=== PATIENT | male | born 1980 | race Caucasian/White ===

== ENCOUNTER 2016-12-01 12:17 | Day surgery (SDC) | payer BC ==
[2016-11-30 15:04] VITALS: BMI 26.9
[2016-12-01] MEDS ORDERED: PROPOFOL 20 ML ONE (12:27)
[2016-12-01] MEDS ORDERED: LIDOCAINE 1%-EPI 1:100,000 30 ML MDV IJ ONE (12:28)
[2016-12-01] MEDS ORDERED: BUPIVACAINE HCL/PF 0.5% (5MG/ML) 10 ML VIAL ONE (12:28)
[2016-12-01] MEDS ORDERED: ROCURONIUM BROMIDE 50 MG/5 ML VIAL ONE (12:28)
[2016-12-01] MEDS ORDERED: MIDAZOLAM HCL 2 MG/2 ML SINGLE DOSE VIAL ONE (12:31)
[2016-12-01] MEDS ORDERED: LIDOCAINE 1%/EPI 1:100000 (20 ML MULTI DOSE VIAL) INF ONE (13:34)
[2016-12-01] MEDS ORDERED: ceFAZolin SODIUM 1 GM VIAL ONE (13:35)
[2016-12-01] MEDS ORDERED: LIDOCAINE HCL 2% 100 MG/5 ML DISP.SYRIN ONE (13:53)
[2016-12-01] MEDS ORDERED: ONDANSETRON 4 MG/2 ML VIAL ONE ×2 (13:54→14:23)
[2016-12-01] MEDS ORDERED: DEXAMETHASONE SOD PHOSPHATE 4 MG/1 ML VIAL ONE ×2 (13:54→14:23)
[2016-12-01] MEDS ORDERED: NEOSTIGMINE METHYLSULFATE 0.5 MG/ML - 10 ML MDV ONE (14:15)
[2016-12-01] MEDS ORDERED: GLYCOPYRROLATE 0.2 MG/1 ML VIAL ONE (14:16)
[2016-12-01] MEDS ORDERED: KETOROLAC TROMETHAMINE 30 MG/1 ML VIAL ONE (14:23)
[2016-12-01] MEDS ORDERED: BUPIVACAINE HCL/PF 0.5% (5MG/ML) 10 ML VIAL IJ ONE ×2 (14:40)
[2016-12-01] MEDS ORDERED: ACETAMINOPHEN 500 MG TABLET (FP) PO PRN (14:44)
[2016-12-01] MEDS ORDERED: ONDANSETRON 4 MG/2 ML VIAL IVPUSH PRN (14:44)
[2016-12-01] MEDS ORDERED: oxyCODONE HCL 5 MG TABLET PO PRN (14:44)
[2016-12-01] MEDS ORDERED: LACTATED RINGERS SOLUTION 1,000 ML IV SCH (14:45)
--- NOTE | 2016-12-01 18:13 | OP ---
DATE OF OPERATION: 12/01/2016 PREOPERATIVE DIAGNOSIS: Right clavicle shaft fracture. POSTOPERATIVE DIAGNOSIS: Right clavicle shaft fracture. OPERATIVE PROCEDURE: Open reduction and internal fixation of right clavicle fracture. SURGEON: Rhina Harris MD FACING END TRIMMER: DENZEL Lawson ANESTHESIA: General. COMPLICATIONS: None. ESTIMATED BLOOD LOSS: Minimal. INDICATIONS FOR PROCEDURE: The patient is a 36-year-old male with above findings, indicated for operative treatment. Risks, benefits, alternatives were discussed with patient at length. Proper informed consent was obtained. PROCEDURE: After proper identification of patient and correct operative site, patient was brought to operating room, placed supine on the operating table, all bony prominences well padded. General anesthesia was provided by the anesthesiologist, adequate for procedure. Intravenous antibiotics given. Patient was placed in the semi-beachchair position with all points of contact well padded and in-line cervical position maintained throughout the procedure. Right shoulder girdle was prepped and draped in the usual sterile fashion. Incision was made over the clavicle. The incision was taken sharply through the skin with blunt and sharp dissection through subcutaneous tissues, taking care to protect crossing nerves. Subperiosteal elevation was performed over the fracture site. Fracture fragments were able to be reduced and then fixed with an Acumed clavicle plate with 3 proximal and 3 distal bicortical screws. This provided secure stable fixation of the fracture, confirmed radiographically in multiple planes as well as visually. The wound was irrigated with saline and repaired in layers using a 4-0 Vicryl and a 4-0 Monocryl suture. Dermabond and sterile dressings were applied. The patient was reversed from anesthesia and brought to the recovery room in stable condition. He tolerated the procedure well. Markie Flores, the accountant assistant, was integral throughout this procedure. The procedure could not have been performed without a skilled operative accountant assistant. RHINA HARRIS M.D. [id number]
[2016-12-01 20:27] VITALS: BP 122/73; PULSE 56; TEMP 98.1
== END 2016-12-01 20:00 | disposition home or self-care (01) ==
LOC: FASU 12:17
PROVIDERS: ATTEND Orthopaedic Surgery Hand Surgery
PROC: 0PS904Z Reposition Right Clavicle with Internal Fixation Device, Open Approach (ICD-10-PCS; principal; 2016-12-01 13:33)
DX: S42.021A Displaced fracture of shaft of right clavicle, initial encounter for closed fracture (principal); X58.XXXA Exposure to other specified factors, initial encounter; Y93.9 Activity, unspecified; Y92.9 Unspecified place or not applicable
CPT/HCPCS: 73000-TC-RT; 94760